=== PATIENT | female | born 1955 | race Caucasian/White ===

== ENCOUNTER 2017-05-22 08:00 | Outpatient (RCR) | payer OTHER ==
[~2017-05-22 08:00] MED LIST: ALLOPURINOL PO; DULOXETINE PO; SIMVASTATIN PO; SOMA PO; ULTRAM 50MG50 MG PO
== END 2017-05-25 ==
LOC: PT 08:00
PROVIDERS: ATTEND Neurological Surgery
DX: M54.12 Radiculopathy, cervical region (principal); M48.061 Spinal stenosis, lumbar region without neurogenic claudication